=== PATIENT | female | born 1965 | race Caucasian/White ===

== ENCOUNTER 2018-05-23 07:39 | Emergency (ER) | payer BC ==
[2018-05-23 08:25] LABS: #Eosinphils 0.1 thou/uL (0.0-0.7); #Lymphocytes 3.4 thou/uL (1.20-3.40); #Monocytes 0.6 thou/uL (0.11-0.59); #Neutrophils 5.5 thou/uL (1.40-6.50); %Basophils 0.4 % (0.0-1.0); %Eosinophils 1.1 % (0.0-10.0); %Lymphocytes 35.6 % (21.0-51.0); Hemoglobin 12.3 g/dL (12.0-16.0); Mean Corpuscular HGB CONC 30.7 g/dL (32.0-36.0); Mean Corpuscular Hemoglobin 24.6 pg (27.0-31.0); Mean Corpuscular Volume 80.2 fL (78.0-98.0); Mean Platelet Volume 9.7 fL (7.4-10.4); Platelet Count 305 thou/uL (130-400); White Blood Cell (WBC) Count 9.6 thou/uL (4.8-10.8)
[2018-05-23] MEDS ORDERED: Adacel (T-DAP) 0.5 ML SYRINGE ONE (08:32)
[2018-05-23] MEDS ORDERED: Lidocaine 1% (PF) 30 ML VIAL ONE (08:32)
[2018-05-23] MEDS ORDERED: Ondansetron PF 4 MG/2 ML Vial ONE (08:32)
[2018-05-23 08:35] LABS: ALT (SGPT) 14 U/L (8-55); AST (SGOT) 17 U/L (5-34); Albumin 4.1 g/dL (3.5-5.0); Alkaline Phosphatase 62 U/L (40-150); Anion Gap 21 mmol/L (10-20); BUN (Urea Nitrogen) 11 mg/dL (9.8-20.1); Bilirubin, Total 0.4 mg/dL (0.2-1.2); Calc. Creatinine Clearance 0 mL/min (70-130); Calcium 9.6 mg/dL (7.8-10.44); Carbon Dioxide 16 mmol/L (22-29); Chloride 107 mmol/L (98-107); Estimated GFR-MDRD 66; Globulin 2.9 g/dL (2.4-3.5); Glucose 225 mg/dL (70-105); Potassium 3.7 mmol/L (3.5-5.1); Sodium 140 mmol/L (136-145)
[2018-05-23] MEDS ORDERED: Bacitracin Zinc 1 Packet ONE (08:57)
--- NOTE | 2018-05-23 09:08 | RAD ---
PORTABLE CHEST: Date: 05/23/18 HISTORY: Syncope. FINDINGS: Lungs are clear. Heart and mediastinum unremarkable. The osseous structures appear intact. IMPRESSION: No acute findings. POS: [facility]
--- NOTE | 2018-05-23 09:08 | CT ---
CT HEAD WITHOUT CONTRAST: Date: 05/23/18 Multiple axial tomograms obtained through the head without IV enhancement. INDICATION: Fall with syncope. Head injury. Comparison made to head CT of 06/09/10. FINDINGS: Ventricles are of normal size and position. No evidence of intracranial hemorrhage. The coarse calcification in the posterior superior right parietal lobe was described on the prior exa m and stable, indicating a benign process. There is also a focal calcification superiorly near the fa lx to the right of midline, also stable. Paranasal sinuses are clear. IMPRESSION: No acute process. POS: [facility]
[2018-05-23] MEDS ORDERED: Acetaminophen 500 MG TAB ONE (09:41)
[2018-05-23] MEDS ORDERED: Ketorolac Tromethamine 30 MG/ML VIAL ONE (11:13)
== END 2018-05-23 11:20 | disposition home or self-care (01) ==
LOC: ERS 07:39
DX: R55 Syncope and collapse (principal); S01.01XA Laceration without foreign body of scalp, initial encounter; E78.5 Hyperlipidemia, unspecified; Z79.899 Other long term (current) drug therapy; W22.8XXA Striking against or struck by other objects, initial encounter
CPT/HCPCS: 12002; 36415; 36416; 70450; 71045; 80053; 84484; 85025; 90471; 90715; 93005; 94760; 96361; 96372; 96374; J1885; J2001; J2405

== ENCOUNTER 2019-02-02 07:56 | Outpatient (CLI) | payer BC ==
--- NOTE | 2019-02-02 08:22 | MMO ---
Bilateral MAMMO Bilat Screen [facility]. CLINICAL HISTORY: Patient is 53 years old and is seen for screening. The patient has no family history of breast cancer. The patient has no personal history of cancer. The patient has a history of left needle biopsy in ? - benign. VIEWS: The views performed were: bilateral craniocaudal with tomosynthesis and bilateral mediolateral oblique with tomosynthesis. FILMS COMPARED: The present examination has been compared to prior imaging studies performed at [facility] on 06/09/2016, and at [facility] on 12/27/2012. This study has been interpreted with the assistance of computer-aided detection. MAMMOGRAM FINDINGS: There are scattered fibroglandular densities. There are stable benign appearing calcifications seen in both breasts. Nodularity is stable. There are no suspicious masses, suspicious calcifications, or new areas of architectural distortion. IMPRESSION: THERE IS NO MAMMOGRAPHIC EVIDENCE OF MALIGNANCY. A ROUTINE FOLLOW-UP MAMMOGRAM IN 1 YEAR IS RECOMMENDED. THE RESULTS OF THIS EXAM WERE SENT TO THE PATIENT. ACR BI-RADS Category 2 - Benign finding MAMMOGRAPHY NOTE: 1. A negative mammogram report should not delay a biopsy if a dominant of clinically suspicious mass is present. 2. Approximately 10% to 15% of breast cancers are not detected by mammography. 3. Adenosis and dense breasts may obscure an underlying neoplasm. Reported by: BILLY SARAH MD Electonically Signed: [id number]
== END 2019-02-02 07:57 | disposition home or self-care (01) ==
LOC: BICMAMMO 07:56
PROVIDERS: ATTEND Family Medicine
DX: Z12.31 Encounter for screening mammogram for malignant neoplasm of breast (principal)
CPT/HCPCS: 77063; 77067

== ENCOUNTER 2019-07-26 19:30 | Outpatient (CLI) | payer BC | END 2019-07-26 19:31 | disposition home or self-care (01) | LOC: SLEEPLAB 19:30 | PROVIDERS: ATTEND Internal Medicine Critical Care Medicine | DX: G47.33 Obstructive sleep apnea (adult) (pediatric) (principal); R53.83 Other fatigue; R06.83 Snoring; G47.10 Hypersomnia, unspecified | CPT/HCPCS: 95810 ==

== ENCOUNTER 2019-10-03 07:47 | Outpatient (CLI) | payer BC ==
--- NOTE | 2019-10-03 09:21 | MRI ---
LUMBAR SPINE MRI WITHOUT CONTRAST: HISTORY: Acute low back pain. Back pain x many years. Two episodes since May 2019. Extreme low back pain and unable to walk. COMPARISON: None. FINDINGS: Appropriate T1 marrow signal intensity of the lumbar vertebrae. Lumbar spine vertebral body heights are maintained. There is no fracture. No significant STIR hyperintensity to suggest vertebral body edema or ligamentous injury. Appropriate signal intensity of the paraspinal muscles and solid organs. Conus medullaris terminates at the inferior aspect of L1. T12-L1: Adequate disk hydration. Subtle T2 and STIR hyperintensity along the posterior annulus comp atible with annular fissure. No significant associated disk herniation or disk bulge. No significan t central canal stenosis or significant neural foraminal narrowing. L1-L2: Minimal desiccation with minimal loss of disk space height. There is a subtle T2 and STIR hy perintensity along the posterior margin of the annulus compatible with an annular fissure. Associate d minimal disk bulge. Minimal central canal stenosis. Bilaterally, neural foramina are patent. L2-L3: Minimal desiccation with mild loss of disk space height. There is a central disk herniation, ligamentum flavum thickening, and facet hypertrophy. Mild to moderate central canal stenosis. Bila terally, neural foramina are patent. Note, there is a small component of superior and inferior disk extrusion. L3-L4: Adequate disk hydration. No significant loss of disk space height. There is a central disk herniation with mild encroachment upon the right subarticular zone. Minimal contact upon the luis alberto ing right L4 nerve root. Left subarticular zone is patent. Mild central canal stenosis. Bilaterall y, neural foramina are patent. L4-L5: Type II Modic changes. Disk desiccation with severe loss of disk space height. Broad-based disk bulge minimally contacts the ventral thecal sac. No significant central canal stenosis. Modera te bilateral neural foraminal narrowing due to disk material. L5-S1: Desiccation with severe loss of disk space height. Broad-based disk bulge minimally contacts the ventral epidural space. There is no significant central canal stenosis. Moderate bilateral berny ral foraminal narrowing. There are type II Modic changes. IMPRESSION: 1. Moderate bilateral neural foraminal narrowing and disk desiccation with significant loss of disk space height at L4-L5 and L5-S1. 2. Annular fissure at L1-L2, L2-L3. There is mild to moderate central canal stenosis secondary to d isk herniation at L2-L3. 3. Narrowing of the right subarticular zone secondary to disk material at the L3-L4 level. No signi ficant obscuration of the traversing right L4 nerve root. POS: [facility]
== END 2019-10-03 07:48 | disposition home or self-care (01) ==
LOC: BICMRI 07:47
PROVIDERS: ATTEND Neurological Surgery
DX: M54.5 Low back pain (principal); M48.061 Spinal stenosis, lumbar region without neurogenic claudication; M48.07 Spinal stenosis, lumbosacral region; M51.26 Other intervertebral disc displacement, lumbar region; Q05.7 Lumbar spina bifida without hydrocephalus
CPT/HCPCS: 72148

== ENCOUNTER 2023-10-04 08:06 | Outpatient (CLI) | payer BC | END 2023-10-04 08:07 | disposition home or self-care (01) | LOC: BICMAMMO 08:06 | PROVIDERS: ATTEND Family Medicine | DX: Z12.31 Encounter for screening mammogram for malignant neoplasm of breast (principal); Z80.3 Family history of malignant neoplasm of breast; Z91.89 Other specified personal risk factors, not elsewhere classified | CPT/HCPCS: 77063; 77067 ==

== ENCOUNTER 2024-09-12 13:30 | Outpatient (CLI) | payer BC ==
[~2024-09-12 13:30] MED LIST: Iopamidol 370 76% 100 ML VIAL ONE
== END 2024-09-12 13:31 | disposition home or self-care (01) ==
LOC: CT 13:30
PROVIDERS: ATTEND Internal Medicine
DX: C25.3 Malignant neoplasm of pancreatic duct (principal); R22.32 Localized swelling, mass and lump, left upper limb; I26.99 Other pulmonary embolism without acute cor pulmonale; I82.612 Acute embolism and thrombosis of superficial veins of left upper extremity
CPT/HCPCS: 71260; Q9967

== ENCOUNTER 2024-10-30 08:14 | Outpatient (CLI) | payer BC ==
[2024-10-30] MEDS ORDERED: Iopamidol 370 76% 100 ML VIAL ONE (10:08)
== END 2024-10-30 08:15 | disposition home or self-care (01) ==
LOC: CT 08:14
PROVIDERS: ATTEND Internal Medicine
DX: C25.3 Malignant neoplasm of pancreatic duct (principal); R22.32 Localized swelling, mass and lump, left upper limb; K86.89 Other specified diseases of pancreas; K83.8 Other specified diseases of biliary tract; C78.7 Secondary malignant neoplasm of liver and intrahepatic bile duct; I26.99 Other pulmonary embolism without acute cor pulmonale; K63.89 Other specified diseases of intestine; R59.0 Localized enlarged lymph nodes; R93.89 Abnormal findings on diagnostic imaging of other specified body structures; Z98.890 Other specified postprocedural states
CPT/HCPCS: 71260; 74177; Q9967

== ENCOUNTER 2024-12-30 08:33 | Inpatient (IN) | payer BC ==
[2024-12-30 08:52] LABS: #Basophils Less than 0.03 10x3/uL (0.0-0.2); #Eosinophils Less than 0.03 10x3/uL (0.0-0.7); #Monocytes 0.86 10x3/uL (0.11-0.59); #Neutrophils 11.51 10x3/uL (1.40-6.50); %Basophils 0.1 % (0.0-1.0); %Eosinophils 0.0 % (0.0-10.0); %Lymphocytes 8.8 % (21.0-51.0); %Monocytes 6.3 % (0.0-10.0); %Neutrophils 84.1 % (42.0-75.0); Hematocrit 30.9 % (36.0-47.0); Hemoglobin 9.9 g/dL (12.0-16.0); Mean Corpuscular Hemoglobin 28.7 pg (27.0-31.0); Mean Corpuscular Volume 89.6 fL (78.0-98.0); Platelet Count 202 10x3/uL (130-400); Red Blood Cell (RBC) Count 3.45 mill/uL (4.20-5.40); White Blood Cell (WBC) Count 13.67 10x3/uL (4.8-10.8)
[2024-12-30] MEDS ORDERED: Ondansetron PF 4 MG/2 ML Vial ONE (09:04)
[2024-12-30 09:07] LABS: INR-International Normal Ratio 1.6; PTT 32.3 sec (22.9-36.1); Prothrombin Time 18.8 sec (12.0-14.7)
[2024-12-30 09:17] LABS: Acetaminophen Less than 10 mcg/mL (Less than 10); Salicylate Less than 8.0 mg/dL (Less than 8.0)
[2024-12-30 09:27] LABS: ALT (SGPT) 33 U/L (Less than 34); AST (SGOT) 53 U/L (11-34); Albumin 1.8 g/dL (3.1-4.5); Alkaline Phosphatase 431 U/L (40-110); Anion Gap 13 mmol/L (10-20); BUN (Urea Nitrogen) 6 mg/dL (9.8-20.1); Bilirubin, Total 0.7 mg/dL (0.3-1.2); Calc. Creatinine Clearance 0 mL/min (70-130); Calcium 7.8 mg/dL (7.8-10.44); Carbon Dioxide 23 mmol/L (22-29); Chloride 104 mmol/L (98-107); Globulin 3.7 g/dL (2.4-3.5); Glucose 96 mg/dL (70-105); Lipase 36 U/L (8-78); Magnesium 1.4 mg/dL (1.6-2.6); Potassium 2.4 mmol/L (3.5-5.1); Sodium 138 mmol/L (136-145)
[2024-12-30] MEDS ORDERED: Magnesium 2 GM/50 ML BAG (IN WATER) ONE (10:28)
[2024-12-30 10:29] LABS: Cocaine Metabolite Screen Negative (Negative); THC/Cannabinoid Screen Negative (Negative); Tricyclic Screen Negative (Negative)
[2024-12-30 10:45] LABS: CAUTI Indications for Culture Pelvic or flank pain; Glucose, Urine (Dipstick) Normal (Negative); Leukocyte Negative Leu/uL (Negative); Protein, Urine (Dipstick) 30 mg/dL (Neg-Trace); RBC/HPF 0-3 HPF (0-3); Specific Gravity, Urine 1.010 (1.002-1.036)
[2024-12-30 10:57] LABS: Bacteria/HPF 1+ HPF (None Seen)
[2024-12-30 10:58] LABS: Urine Culture Reflex No No
[2024-12-30] MEDS ORDERED: Potassium Chloride 20 MEQ (100 mL) BAG ONE (10:59)
[2024-12-30] MEDS ORDERED: Iopamidol-370 76% 500 ML MDV (1 ML CHARGE) ONE (12:44)
[2024-12-30] MEDS ORDERED: Guaifenesin DM 100-10/5 ML UDCUP PO PRN (13:19)
[2024-12-30] MEDS ORDERED: Ondansetron PF 4 MG/2 ML Vial IVP PRN (13:19)
[2024-12-30] MEDS ORDERED: Calcium Carbonate 500 MG ChewTAB PO PRN (13:19)
[2024-12-30] MEDS ORDERED: Magnesium Sulfate/D5W 1 GM/100 ML BAG IVPB SCH (13:30)
[2024-12-30] MEDS: Potassium Chloride 20 MEQ in Premix 1 BAG IVPB SCH (14:32)
[2024-12-30] MEDS: Acetaminophen 325 MG TAB PO SCH (14:37)
[2024-12-30] MEDS: Magnesium 2 GM/50 ML(in water) 2 GM in Premix 1 BAG IVPB SCH (14:37)
[2024-12-30 17:35] LABS: Potassium 3.4 mmol/L (3.5-5.1)
[2024-12-30] MEDS: DULoxetine 30 MG CAP PO SCH (20:28)
[2024-12-30] MEDS: Apixaban 5 MG TAB PO SCH (20:28)
[2024-12-30 20:38] LABS: Anion Gap 14 mmol/L (10-20); BUN (Urea Nitrogen) 7 mg/dL (9.8-20.1); Calc. Creatinine Clearance 111 mL/min (70-130); Calcium 7.4 mg/dL (7.8-10.44); Carbon Dioxide 24 mmol/L (22-29); Chloride 109 mmol/L (98-107); Glucose 160 mg/dL (70-105); Magnesium 2.5 mg/dL (1.6-2.6); Potassium 3.7 mmol/L (3.5-5.1); Sodium 143 mmol/L (136-145)
[2024-12-31 05:33] LABS: Chloride 111 mmol/L (98-107); Potassium 4.4 mmol/L (3.5-5.1); Sodium 135 mmol/L (136-145)
[2024-12-31 05:34] LABS: Anion Gap 5 mmol/L (10-20); BUN (Urea Nitrogen) 6 mg/dL (9.8-20.1); Calc. Creatinine Clearance 131 mL/min (70-130); Calcium 7.6 mg/dL (7.8-10.44); Carbon Dioxide 23 mmol/L (22-29); Glucose 90 mg/dL (70-105); Magnesium 2.1 mg/dL (1.6-2.6)
[2024-12-31] MEDS: Pantoprazole 40 MG DR.TAB PO SCH (09:45)
[2024-12-31] MEDS: Megestrol Acetate 800 MG/20 ML UDCUP PO SCH (12:53)
[2024-12-31] MEDS ORDERED: VANCOMYCIN IVPB PRN (15:40)
[2024-12-31] MEDS: Vancomycin 1 GM in Premix 1 BAG IVPB SCH (16:12)
[2024-12-31] MEDS: Vancomycin 1.5 GM / NS 500ML VIAL-2-BAG IVPB SCH (16:32)
[2024-12-31] MEDS: FLU (Fluarix Triv) 25-26 (6MOS UP)/PF 45 MCG/0.5 ML Syringe IM ONE (18:05)
[2024-12-31 23:53] LABS: Campy jejuni + coli by PCR Negative (Negative); STEC Shiga Toxin 1+2 Negative (Negative); Salmonella spp. by PCR Negative (Negative); Shigella spp + EIEC by PCR Negative (Negative)
[2025-01-01] MEDS: Vancomycin 1.25 GM / NS 250 ML VIAL-2-BAG IVPB SCH (05:39)
[2025-01-01 05:58] LABS: #Basophils Less than 0.03 10x3/uL (0.0-0.2); #Eosinophils 0.07 10x3/uL (0.0-0.7); #Monocytes 0.64 10x3/uL (0.11-0.59); #Neutrophils 9.36 10x3/uL (1.40-6.50); %Basophils 0.2 % (0.0-1.0); %Eosinophils 0.6 % (0.0-10.0); %Lymphocytes 14.8 % (21.0-51.0); %Monocytes 5.4 % (0.0-10.0); %Neutrophils 78.3 % (42.0-75.0); Hematocrit 29.6 % (36.0-47.0); Hemoglobin 9.7 g/dL (12.0-16.0); Mean Corpuscular Hemoglobin 29.0 pg (27.0-31.0); Mean Corpuscular Volume 88.6 fL (78.0-98.0); Platelet Count 171 10x3/uL (130-400); Red Blood Cell (RBC) Count 3.34 mill/uL (4.20-5.40); White Blood Cell (WBC) Count 11.94 10x3/uL (4.8-10.8)
[2025-01-01 06:07] LABS: Vancomycin, Random 7.8 ug/mL (See Comment)
[2025-01-01 06:11] LABS: Anion Gap 11 mmol/L (10-20); BUN (Urea Nitrogen) 7 mg/dL (9.8-20.1); Calc. Creatinine Clearance 151 mL/min (70-130); Calcium 7.6 mg/dL (7.8-10.44); Carbon Dioxide 22 mmol/L (22-29); Chloride 108 mmol/L (98-107); Glucose 77 mg/dL (70-105); Potassium 3.5 mmol/L (3.5-5.1); Sodium 137 mmol/L (136-145)
[2025-01-01 16:11] VITALS: BMI 21.5
[2025-01-02 05:26] LABS: Hematocrit 30.5 % (36.0-47.0); Hemoglobin 9.9 g/dL (12.0-16.0); Mean Corpuscular Hemoglobin 29.0 pg (27.0-31.0); Mean Corpuscular Volume 89.4 fL (78.0-98.0); Platelet Count 213 10x3/uL (130-400); Red Blood Cell (RBC) Count 3.41 mill/uL (4.20-5.40); White Blood Cell (WBC) Count 11.37 10x3/uL (4.8-10.8)
[2025-01-02 05:27] VITALS: TEMP 97.8
[2025-01-02 05:41] LABS: Anion Gap 11 mmol/L (10-20); BUN (Urea Nitrogen) 9 mg/dL (9.8-20.1); Calc. Creatinine Clearance 144 mL/min (70-130); Calcium 7.8 mg/dL (7.8-10.44); Carbon Dioxide 23 mmol/L (22-29); Chloride 106 mmol/L (98-107); Glucose 87 mg/dL (70-105); Potassium 3.3 mmol/L (3.5-5.1); Sodium 137 mmol/L (136-145)
[2025-01-02 06:00] LABS: Platelet Adequacy Comment Platelets Normal; RBC Morphology Within Normal Limits; Smudge Cells 6.9 %
[2025-01-02 06:12] VITALS: BMI 21.5
[2025-01-02 09:51] VITALS: BP 92/64
== END 2025-01-02 14:25 | disposition home or self-care (01) | DRG 393 ==
LOC: ERS 08:33 → MSONC 12:35
PROVIDERS: ADMIT Internal Medicine; ATTEND Internal Medicine
DX: K52.1 Toxic gastroenteritis and colitis (principal); E43 Unspecified severe protein-calorie malnutrition; C78.7 Secondary malignant neoplasm of liver and intrahepatic bile duct; C25.9 Malignant neoplasm of pancreas, unspecified; E86.0 Dehydration; E87.6 Hypokalemia; K52.9 Noninfective gastroenteritis and colitis, unspecified; E83.42 Hypomagnesemia; Z86.711 Personal history of pulmonary embolism; Z98.84 Bariatric surgery status; Z23 Encounter for immunization; Z98.51 Tubal ligation status; Z96.0 Presence of urogenital implants; E86.1 Hypovolemia; Z79.01 Long term (current) use of anticoagulants; Z79.899 Other long term (current) drug therapy; D72.829 Elevated white blood cell count, unspecified; Z68.21 Body mass index [BMI] 21.0-21.9, adult; E78.00 Pure hypercholesterolemia, unspecified; Z98.890 Other specified postprocedural states; F32.A Depression, unspecified; F41.9 Anxiety disorder, unspecified; Z99.3 Dependence on wheelchair; T45.1X5A Adverse effect of antineoplastic and immunosuppressive drugs, initial encounter
CPT/HCPCS: 36415; 71275; 74177; 80048; 80202; 80306; 80307; 81001; 83605; 83690; 83735; 83880; 84100; 84443; 84484; 85025; 85610; 85730; 86141; 87040; 87086; 87149; 87324; 87449; 87505; 93005; 96361; 96365; 96366; 96367; 96368; 96375; J0692; J2405; J2543; J3373; J3475; J3480; J7030; J7050; Q9967